=== PATIENT | male | born 1950 | race African-American/Black ===

== ENCOUNTER 2018-01-20 10:46 | Observation (INO) | payer OTHER, MEDICAID ==
[~2018-01-20] VITALS: Ht 175.3 cm; Wt 72.6 kg
[~2018-01-20 10:46] MED LIST: ASPI-1159 PO; BACL-141 PO; CHOL20004 PO; FOLI-43 PO; GABA-290 PO; HYDR12.54 PO; MONT10TA21 PO; NAPR-681 PO; OCD MT; PULM50 IH; SENN-169 PO; TRAZADONE PO
[2018-01-20] MEDS ORDERED: SODIUM CHLORIDE 0.9% 1,000 ML IV ONE (11:05)
[2018-01-20] MEDS ORDERED: ONDANSETRON HCL 4MG/2ML VIAL IV STA (11:05)
[2018-01-20] MEDS ORDERED: KETOROLAC 30MG/ML VIAL IV STA (11:05)
[2018-01-20] MEDS ORDERED: MORPHINE SULFATE 4 MG/ML CPJ (NOT FOR IM USE) IV STA (11:05)
[2018-01-20] MEDS ORDERED: LORAZEPAM 2MG/ML CPJ IV ONE (11:15)
[2018-01-20 11:35] LABS: BASOPHILS % 0.4 % (0.0-2.0); EOSINOPHILS % 0.2 % (0.0-5.0); HEMATOCRIT. 39.8 % (42.0-52.0); HEMOGLOBIN. 13.3 g/dL (14.0-18.0); LYMPHOCYTES % 15.4 % (20.0-50.0); MEAN CORPUSCULAR HEMOGLOBIN 28.7 pg (28.0-32.0); MEAN CORPUSCULAR VOLUME 85.8 fL (80.0-94.0); MEAN PLATELET VOLUME 7.5 fl (7.4-10.4); MONOCYTES % 5.9 % (2.0-8.0); NEUTROPHILS % 78.1 % (40.0-76.0); PLATELET 166 x1000/uL (130-400); RED BLOOD CELL COUNT 4.64 mill/uL (4.7-6.1); RED CELL DISTRIBUTION WIDTH 15.6 % (11.6-14.6)
[2018-01-20 11:42] LABS: INR 1.1
[2018-01-20 11:44] LABS: AMMONIA 27 uMol/L (<32)
[2018-01-20 11:51] LABS: CHLORIDE 102 mEq/L (98-107)
[2018-01-20 11:56] LABS: ETHANOL BLOOD 50 mg/dL
[2018-01-20 12:00] LABS: CREATINE KINASE 170 IU/L (39-308)
[2018-01-20 12:10] LABS: CARBAMAZEPINE < 0.5 ug/mL (4-12); PHENOBARBITAL < 2.1 ug/mL (15.0-40.0); VALPROIC ACID < 3.0 ug/mL (50-100)
[2018-01-20 12:52] LABS: CLARITY URINE CLEAR (CLEAR); COLOR URINE YELLOW (YELLOW); KETONES URINE TRACE (NEGATIVE); LEUKOCYTE ESTERASE URINE NEGATIVE (NEGATIVE); NITRITE URINE NEGATIVE (NEGATIVE); OCCULT BLOOD URINE TRACE (NEGATIVE); PROTEIN URINE NEGATIVE (NEGATIVE); SPECIFIC GRAVITY URINE 1.033 (1.005-1.030)
[2018-01-20] MEDS ORDERED: MORPHINE SULFATE 10 MG/ML CPJ IM ONE (13:15)
[2018-01-20 13:36] LABS: *BARBITURATES SCREEN URINE NEGATIVE (NEGATIVE); OPIATES URINE SCREEN PRESUMTIVE POSITIVE (NEGATIVE); PHENCYCLIDINE URINE SCREEN NEGATIVE (NEGATIVE)
[2018-01-20 13:37] LABS: *AMPHETAMINES SCREEN URINE NEGATIVE (NEGATIVE); *BENZODIAZEPINES SCREEN URINE PRESUMTIVE POSITIVE (NEGATIVE); *COCAINE SCREEN URINE NEGATIVE (NEGATIVE); CANNABINOID URINE SCREEN NEGATIVE (NEGATIVE); METHADONE URINE SCREEN NEGATIVE (NEGATIVE)
[2018-01-20] MEDS ORDERED: FOLIC ACID 1 MG, THIAMINE HCL 100 MG, MVI, ADULT NO.1 10 ML in DEXTROSE 5% WATER 1,000 ML IV ONE ×4 (14:45)
[2018-01-20 17:00] VITALS: BP 171/102
[2018-01-20] MEDS ORDERED: ACETAMINOPHEN 325MG TABLET PO PRN (17:00)
[2018-01-20] MEDS ORDERED: HYDROCODONE/ACETAMINOPHEN 5/325MG TABLET PO PRN (17:00)
[2018-01-20] MEDS ORDERED: ONDANSETRON HCL 4MG/2ML VIAL IV PRN (17:00)
[2018-01-20] MEDS ORDERED: NA PHOS,M-B/NA PHOS,DI-BA ENEMA 118ML PR PRN (17:00)
[2018-01-20] MEDS ORDERED: ACETAMINOPHEN 650MG SUPP PR PRN (17:00)
[2018-01-20] MEDS ORDERED: DIPHENHYDRAMINE 50MG/ML VIAL IV PRN (17:00)
[2018-01-20] MEDS ORDERED: IPRATROPIUM/ALBUTEROL 0.5-3(2.5)MG/3ML NEB INH PRN (17:00)
[2018-01-20] MEDS ORDERED: MAGNESIUM/ALUMINUM HYDROXIDE/SIMETHICONE 30ML UDC PO PRN (17:00)
[2018-01-20] MEDS ORDERED: HYDR-4009 PO (17:05)
[2018-01-20] MEDS: AMLODIPINE 5MG TABLET PO SCH (17:59)
[2018-01-20] MEDS: CLONIDINE 0.1MG TABLET PO PRN (17:59)
[2018-01-20] MEDS: HYDROCODONE/ACETAMINOPHEN 10/325MG TABLET PO PRN ×2 (18:00→23:59)
[2018-01-20] MEDS: LORAZEPAM 2MG/ML CPJ IV PRN (18:00)
[2018-01-20 18:36] VITALS: BP 177/101
[2018-01-20 20:00] VITALS: BP 148/97
[2018-01-20] MEDS: GABAPENTIN 300MG CAPSULE PO SCH (21:33)
[2018-01-20] MEDS: BACLOFEN 10MG TABLET PO SCH (21:33)
[2018-01-20] MEDS: CHLORDIAZEPOXIDE 25MG CAPSULE PO SCH (21:33)
[2018-01-20] MEDS: SODIUM CHLORIDE 0.45% 1,000 ML IV SCH (21:34)
[2018-01-20] MEDS ORDERED: GABAPENTIN 300MG CAPSULE PO SCH (22:00)
[2018-01-21] VITALS: BP 148/93
[2018-01-21 04:00] VITALS: BP 147/92
[2018-01-21] MEDS: BACLOFEN 10MG TABLET PO SCH ×3 (05:05→21:07)
[2018-01-21] MEDS: GABAPENTIN 300MG CAPSULE PO SCH ×3 (05:05→21:07)
[2018-01-21] MEDS: CHLORDIAZEPOXIDE 25MG CAPSULE PO SCH (05:05)
[2018-01-21] MEDS: HYDROCODONE/ACETAMINOPHEN 10/325MG TABLET PO PRN ×3 (06:33→21:08)
[2018-01-21 06:35] LABS: BASOPHILS % 0.4 % (0.0-2.0); EOSINOPHILS % 3.3 % (0.0-5.0); HEMATOCRIT. 35.8 % (42.0-52.0); HEMOGLOBIN. 11.9 g/dL (14.0-18.0); LYMPHOCYTES % 32.1 % (20.0-50.0); MEAN CORPUSCULAR HEMOGLOBIN 28.8 pg (28.0-32.0); MEAN CORPUSCULAR VOLUME 86.3 fL (80.0-94.0); MEAN PLATELET VOLUME 7.7 fl (7.4-10.4); MONOCYTES % 11.4 % (2.0-8.0); NEUTROPHILS % 52.8 % (40.0-76.0); PLATELET 133 x1000/uL (130-400); RED BLOOD CELL COUNT 4.15 mill/uL (4.7-6.1); RED CELL DISTRIBUTION WIDTH 15.5 % (11.6-14.6)
[2018-01-21 06:54] LABS: CHLORIDE 103 mEq/L (98-107)
[2018-01-21 07:04] LABS: LDL CHOLESTEROL 98 mg/dL (5-100)
[2018-01-21 07:06] LABS: HDL CHOLESTEROL 90 mg/dL (40-59)
[2018-01-21 08:00] VITALS: BP 156/97
[2018-01-21] MEDS: LORAZEPAM 2MG/ML CPJ IV PRN ×2 (08:36→22:40)
[2018-01-21] MEDS: ASPIRIN 81MG EC TABLET PO SCH (08:37)
[2018-01-21] MEDS: FOLIC ACID 1MG TABLET PO SCH (08:37)
[2018-01-21] MEDS: MULTIVITAMINS,THER W-MINERALS TABLET PO SCH (08:37)
[2018-01-21] MEDS: AMLODIPINE 5MG TABLET PO SCH (08:37)
[2018-01-21] MEDS: THIAMINE HCL 100MG TABLET PO SCH (08:37)
[2018-01-21] MEDS: SODIUM CHLORIDE 0.45% 1,000 ML IV SCH (08:38)
[2018-01-21] MEDS ORDERED: POTASSIUM CHLORIDE 20MEQ TABLET SR PO SCH (08:45)
[2018-01-21] MEDS ORDERED: CHLORDIAZEPOXIDE 25MG CAPSULE PO PRN (11:00)
[2018-01-21 12:00] VITALS: BP 153/89
[2018-01-21] MEDS: ENOXAPARIN 40MG/0.4ML SYR SUBCUT SCH (13:27)
[2018-01-21 16:00] VITALS: BP 128/93
[2018-01-21 20:00] VITALS: BP 144/95
[2018-01-21] MEDS: CLONIDINE 0.1MG TABLET PO PRN (23:31)
[2018-01-22] VITALS (8 sets, daily range): BP systolic 132–168; BP diastolic 86–105
[2018-01-22] MEDS: HYDROCODONE/ACETAMINOPHEN 10/325MG TABLET PO PRN (03:13)
[2018-01-22] MEDS: BACLOFEN 10MG TABLET PO SCH ×2 (05:04→13:12)
[2018-01-22] MEDS: GABAPENTIN 300MG CAPSULE PO SCH ×2 (05:04→13:11)
[2018-01-22 07:15] LABS: HEMATOCRIT 37.4 % (42.0-52.0); HEMOGLOBIN 12.5 g/dL (14.0-18.0); PLATELET 132 x1000/uL (130-400); RED CELL DISTRIBUTION WIDTH 15.3 % (11.6-14.6)
[2018-01-22 07:24] LABS: CHLORIDE 104 mEq/L (98-107)
[2018-01-22] MEDS: FOLIC ACID 1MG TABLET PO SCH (09:30)
[2018-01-22] MEDS: MULTIVITAMINS,THER W-MINERALS TABLET PO SCH (09:30)
[2018-01-22] MEDS: THIAMINE HCL 100MG TABLET PO SCH (09:31)
[2018-01-22] MEDS: ASPIRIN 81MG EC TABLET PO SCH (09:31)
[2018-01-22] MEDS: AMLODIPINE 5MG TABLET PO SCH (09:31)
[2018-01-22] MEDS: ENOXAPARIN 40MG/0.4ML SYR SUBCUT SCH (09:32)
[2018-01-22] MEDS ORDERED: HYDROCHLOROTHIAZIDE 25MG TABLET PO SCH (12:00)
[2018-01-22] MEDS ORDERED: LACTULOSE 20G/30ML UDC PO NR (13:30)
== END 2018-01-22 20:16 ==
LOC: ER 11:02 → INTOOBSV 14:46 → 5WST 14:46 → EDBEDREQ 14:51 → ENRESERV 15:26 → SUPCPDRO 16:51
PROVIDERS: ADMIT Internal Medicine; ATTEND Internal Medicine
DX: F10.239 Alcohol dependence with withdrawal, unspecified (principal); G61.0 Guillain-Barre syndrome; E87.6 Hypokalemia; E86.0 Dehydration; I10 Essential (primary) hypertension; D64.9 Anemia, unspecified; E78.5 Hyperlipidemia, unspecified; F11.20 Opioid dependence, uncomplicated; G89.4 Chronic pain syndrome; R26.9 Unspecified abnormalities of gait and mobility; Y90.2 Blood alcohol level of 40-59 mg/100 ml; Z91.19 Patient's noncompliance with other medical treatment and regimen
CPT/HCPCS: 36415; 71045; 80048; 80053; 80061; 80156; 80165; 80184; 80185; 80305; 80307; 80329; 81003; 82140; 82550; 83690; 83880; 84443; 84484; 85025; 85027; 85610; 93005; 93306; 93970; 96361; 96365; 96366; 96372; 96375; 96376; 97162; 97530; 99285; G0378; G0482; J1650; J1885; J2060; J2270; J2405; J3411; J3490; J7030; J7070

== ENCOUNTER 2018-01-25 13:06 | Observation (INO) | payer OTHER, MEDICAID ==
[~2018-01-25] VITALS: Ht 152.4 cm; Wt 4.5 kg
[~2018-01-25 13:06] MED LIST changes: +HYDR-4009 PO; -NAPR-681 PO
[2018-01-25 16:25] LABS: INR 1.1
[2018-01-25 16:37] LABS: CHLORIDE 104 mEq/L (98-107)
[2018-01-25 16:54] LABS: CLARITY URINE CLEAR (CLEAR); COLOR URINE YELLOW (YELLOW); KETONES URINE NEGATIVE (NEGATIVE); LEUKOCYTE ESTERASE URINE NEGATIVE (NEGATIVE); NITRITE URINE NEGATIVE (NEGATIVE); OCCULT BLOOD URINE NEGATIVE (NEGATIVE); PROTEIN URINE NEGATIVE (NEGATIVE); SPECIFIC GRAVITY URINE 1.007 (1.005-1.030); UROBILINOGEN URINE 0.2 E.U./dL (0.2-1.0)
[2018-01-25 17:08] LABS: *BARBITURATES SCREEN URINE NEGATIVE (NEGATIVE); *BENZODIAZEPINES SCREEN URINE PRESUMTIVE POSITIVE (NEGATIVE); METHADONE URINE SCREEN NEGATIVE (NEGATIVE); OPIATES URINE SCREEN NEGATIVE (NEGATIVE)
[2018-01-25 17:09] LABS: CANNABINOID URINE SCREEN NEGATIVE (NEGATIVE); PHENCYCLIDINE URINE SCREEN NEGATIVE (NEGATIVE)
[2018-01-25 17:11] LABS: *AMPHETAMINES SCREEN URINE NEGATIVE (NEGATIVE); *COCAINE SCREEN URINE NEGATIVE (NEGATIVE)
[2018-01-25 20:54] LABS: BASOPHILS % 0.2 % (0.0-2.0); EOSINOPHILS % 1.3 % (0.0-5.0); HEMATOCRIT. 36.3 % (42.0-52.0); HEMOGLOBIN. 12.1 g/dL (14.0-18.0); MEAN CORPUSCULAR HEMOGLOBIN 29.2 pg (28.0-32.0); MEAN CORPUSCULAR VOLUME 88.1 fL (80.0-94.0); MEAN PLATELET VOLUME 7.6 fl (7.4-10.4); MONOCYTES % 13.4 % (2.0-8.0); NEUTROPHILS % 51.1 % (40.0-76.0); PLATELET 150 x1000/uL (130-400); RED BLOOD CELL COUNT 4.13 mill/uL (4.7-6.1); RED CELL DISTRIBUTION WIDTH 15.5 % (11.6-14.6)
[2018-01-25] MEDS ORDERED: HYDROCODONE/ACETAMINOPHEN 5/325MG TABLET PO ONE (21:00)
[2018-01-26] VITALS (9 sets, daily range): BP systolic 150–178; BP diastolic 88–108
[2018-01-26] MEDS ORDERED: HYDROCODONE/ACETAMINOPHEN 10/325MG TABLET PO PRN (03:30)
[2018-01-26] MEDS ORDERED: ACETAMINOPHEN 650MG/20.3ML UDC PO PRN (03:45)
[2018-01-26] MEDS: SODIUM CHLORIDE 0.9% INJ 3ML FLUSH IVF SCH ×3 (06:00→22:00)
[2018-01-26] MEDS: GABAPENTIN 300MG CAPSULE PO SCH ×3 (06:58→21:15)
[2018-01-26 07:13] LABS: BASOPHILS % 0.4 % (0.0-2.0); EOSINOPHILS % 0.8 % (0.0-5.0); HEMATOCRIT. 36.2 % (42.0-52.0); HEMOGLOBIN. 12.1 g/dL (14.0-18.0); LYMPHOCYTES % 23.5 % (20.0-50.0); MEAN CORPUSCULAR HEMOGLOBIN 29.1 pg (28.0-32.0); MEAN CORPUSCULAR VOLUME 86.8 fL (80.0-94.0); MONOCYTES % 11.3 % (2.0-8.0); PLATELET 149 x1000/uL (130-400); RED BLOOD CELL COUNT 4.17 mill/uL (4.7-6.1)
[2018-01-26 07:41] LABS: CHLORIDE 101 mEq/L (98-107)
[2018-01-26] MEDS ORDERED: BUDESONIDE 0.5MG/2ML NEB HHN SCH (09:00)
[2018-01-26] MEDS: FOLIC ACID 1MG TABLET PO SCH (09:12)
[2018-01-26] MEDS: MONTELUKAST SODIUM 10MG TABLET PO SCH (09:13)
[2018-01-26] MEDS: FAMOTIDINE 20MG TABLET PO SCH ×2 (09:13→21:13)
[2018-01-26] MEDS: CALCIUM CARBONATE/VITAMIN D3 500MG TABLET PO SCH (09:13)
[2018-01-26] MEDS: ASPIRIN 81MG TABLET PO SCH (09:13)
[2018-01-26] MEDS: MULTIVITAMINS,THER W-MINERALS TABLET PO SCH (09:13)
[2018-01-26] MEDS: ENOXAPARIN 40MG/0.4ML SYR SUBCUT SCH (09:14)
[2018-01-26] MEDS: THIAMINE HCL 100MG TABLET PO SCH (09:14)
[2018-01-26] MEDS ORDERED: SENNOSIDES 8.6MG TABLET PO SCH (21:00)
[2018-01-26] MEDS: CLONIDINE 0.1MG TABLET PO PRN (21:13)
[2018-01-27] VITALS: BP 161/101
[2018-01-27 04:00] VITALS: BP 152/95
[2018-01-27] MEDS ORDERED: HYDRALAZINE HCL 50MG TABLET PO SCH (06:00)
[2018-01-27] MEDS: SODIUM CHLORIDE 0.9% INJ 3ML FLUSH IVF SCH (06:10)
[2018-01-27] MEDS: GABAPENTIN 300MG CAPSULE PO SCH (06:10)
[2018-01-27 08:00] VITALS: BP 151/95
[2018-01-27] MEDS: FOLIC ACID 1MG TABLET PO SCH (09:55)
[2018-01-27] MEDS: MULTIVITAMINS,THER W-MINERALS TABLET PO SCH (09:55)
[2018-01-27] MEDS: ENOXAPARIN 40MG/0.4ML SYR SUBCUT SCH (09:55)
[2018-01-27] MEDS: CALCIUM CARBONATE/VITAMIN D3 500MG TABLET PO SCH (09:55)
[2018-01-27] MEDS: CLONIDINE 0.1MG TABLET PO PRN (09:55)
[2018-01-27] MEDS: THIAMINE HCL 100MG TABLET PO SCH (09:55)
[2018-01-27] MEDS: FAMOTIDINE 20MG TABLET PO SCH (09:55)
[2018-01-27] MEDS: ASPIRIN 81MG TABLET PO SCH (09:55)
[2018-01-27] MEDS: MONTELUKAST SODIUM 10MG TABLET PO SCH (09:55)
[2018-01-27 12:00] VITALS: BP 133/83
[2018-01-27 12:52] VITALS: BP 133/83
== END 2018-01-27 14:15 | disposition home or self-care (01) ==
LOC: ER 13:06 → INTOOBSV 22:40 → 5WST 22:40 → ENRESERV 01-26 00:02 → 5WST 01-26 02:14
PROVIDERS: ADMIT Internal Medicine; ATTEND Internal Medicine
DX: G62.9 Polyneuropathy, unspecified (principal); F10.10 Alcohol abuse, uncomplicated; G61.0 Guillain-Barre syndrome; I10 Essential (primary) hypertension; F32.9 Major depressive disorder, single episode, unspecified; Z99.3 Dependence on wheelchair; W18.30XA Fall on same level, unspecified, initial encounter; Y92.89 Other specified places as the place of occurrence of the external cause; Y93.89 Activity, other specified; Y99.8 Other external cause status
CPT/HCPCS: 36415; 70450; 71045; 80048; 80053; 80305; 81003; 83036; 83880; 84484; 85025; 85610; 87040; 87086; 93005; 96372; 99285; G0378; J1650

== ENCOUNTER 2018-04-05 22:33 | Emergency (ER) | payer OTHER, MEDICAID ==
[~2018-04-05] VITALS: Ht 175.3 cm; Wt 66.0 kg
[2018-04-06] MEDS ORDERED: OXYCODONE HCL 5MG TABLET PO ONE (01:15)
[2018-04-06] MEDS ORDERED: KETOROLAC 15MG/ML VIAL IM ONE (01:15)
[2018-04-06] MEDS ORDERED: PREDNISONE 20MG TABLET PO ONE (01:15)
[2018-04-06 01:51] VITALS: BP 154/78
== END 2018-04-06 01:51 | disposition home or self-care (01) ==
LOC: ER 22:33
DX: G89.29 Other chronic pain (principal); M54.5 Low back pain; M25.552 Pain in left hip; M25.562 Pain in left knee; M79.1 Myalgia; M19.90 Unspecified osteoarthritis, unspecified site; K21.9 Gastro-esophageal reflux disease without esophagitis; I10 Essential (primary) hypertension; I51.9 Heart disease, unspecified; Z79.899 Other long term (current) drug therapy; W17.89XA Other fall from one level to another, initial encounter; Y93.89 Activity, other specified; Y92.89 Other specified places as the place of occurrence of the external cause; Y99.8 Other external cause status
CPT/HCPCS: 73502; 73562; 96372; 99284; J1885; J7512

== ENCOUNTER 2018-07-21 06:59 | Emergency (ER) | payer OTHER, MEDICAID ==
[~2018-07-21] VITALS: Ht 175.3 cm; Wt 72.0 kg
[~2018-07-21 06:59] MED LIST changes: -SENN-169 PO; +SENN-170 PO
[2018-07-21] MEDS ORDERED: FLUORESCEIN SODIUM 1MG/STRIP OP ONE (07:30)
[2018-07-21] MEDS ORDERED: TETRACAINE 0.5% OPHTH DROPS 4ML LEFTEYE ONE (09:30)
[2018-07-21] MEDS ORDERED: OXYCODONE HCL/ACETAMINOPHEN 5/325MG TABLET PO ONE (10:00)
[2018-07-21 11:25] VITALS: BP 178/92
== END 2018-07-21 11:35 | disposition home or self-care (01) ==
LOC: ER 06:59
DX: H11.32 Conjunctival hemorrhage, left eye (principal); G61.0 Guillain-Barre syndrome; I11.9 Hypertensive heart disease without heart failure; K21.9 Gastro-esophageal reflux disease without esophagitis; Z98.49 Cataract extraction status, unspecified eye; Z79.82 Long term (current) use of aspirin
CPT/HCPCS: 99283

== ENCOUNTER 2018-11-12 15:36 | Inpatient (IN) | payer MEDICAID, OTHER ==
[~2018-11-12] VITALS: Ht 175.3 cm; Wt 67.1 kg
[2018-11-12] MEDS ORDERED: IPRATROPIUM BROMIDE (0.02%) 0.5MG/2.5ML NEB HHN STA (16:10)
[2018-11-12] MEDS ORDERED: SODIUM CHLORIDE 0.9% 1,000 ML IV ONE (16:10)
[2018-11-12] MEDS ORDERED: ALBUTEROL (0.083%) 2.5MG/3ML NEB HHN STA (16:10)
[2018-11-12] MEDS ORDERED: METHYLPREDNISOLONE SOD SUCC 125 MG/2 ML VIAL IV STA (16:10)
[2018-11-12] MEDS ORDERED: DIAZEPAM 5 MG TABLET PO ONE (16:15)
[2018-11-12 16:38] LABS: BASOPHILS % 0.4 % (0.0-2.0); EOSINOPHILS % 0.1 % (0.0-5.0); HEMATOCRIT. 36.3 % (42.0-52.0); LYMPHOCYTES % 10.6 % (20.0-50.0); MEAN CORPUSCULAR HEMOGLOBIN 30.1 pg (28.0-32.0); MEAN CORPUSCULAR VOLUME 91.1 fL (80.0-94.0); MEAN PLATELET VOLUME 7.4 fl (7.4-10.4); NEUTROPHILS % 82.9 % (40.0-76.0); PLATELET 179 x1000/uL (130-400); RED BLOOD CELL COUNT 3.98 mill/uL (4.7-6.1); RED CELL DISTRIBUTION WIDTH 14.9 % (11.6-14.6)
[2018-11-12 16:46] LABS: PROTHROMBIN TIME 10.7 sec (9.6-11.0)
[2018-11-12 16:47] LABS: CHLORIDE 102 mEq/L (98-107)
[2018-11-12] MEDS ORDERED: MAGNESIUM 1 G PREMIX 100 ML IV ONE (17:00)
[2018-11-12 17:45] LABS: BG BASE EXCESS 4.5 mmol/L (-2.0-2.0); BG CARBOXYHEMOGLOBIN 0.3 % (0.5-1.5); BG DEOXYHEMOGLOBIN 3.1 % (0.0-5.0); BG FRACTION INSPIRED OXYGEN 21; BG HCO3 ACT 26.5 mmol/L (22.0-26.0); BG METHEMOGLOBIN 0.4 % (0.0-1.5); BG OXYGEN SATURATION 96.9 % (92.0-98.5); BG OXYHEMOGLOBIN 96.2 % (94.0-97.0); BG PCO2 31.3 mmHg (35.0-45.0); BG PH 7.546 (7.350-7.450); BG PO2 98.3 mmHg (75.0-100.0); BG SAMPLE SITE RIGHT BRACHIAL; BG TOTAL HEMOGLOBIN 12.5 g/dL (12.0-18.0); BG VENT MODE ROOM AIR
[2018-11-12] MEDS ORDERED: GABAPENTIN 300MG CAPSULE PO ONE (17:45)
[2018-11-12 20:03] LABS: CLARITY URINE CLOUDY (CLEAR); COLOR URINE YELLOW (YELLOW); KETONES URINE 1+ (NEGATIVE); LEUKOCYTE ESTERASE URINE TRACE (NEGATIVE); NITRITE URINE NEGATIVE (NEGATIVE); OCCULT BLOOD URINE NEGATIVE (NEGATIVE); PH URINE 7.5 (4.5-8.0); PROTEIN URINE NEGATIVE (NEGATIVE); SPECIFIC GRAVITY URINE 1.023 (1.005-1.030)
[2018-11-12] MEDS ORDERED: HYDRALAZINE 20MG/ML VIAL IV PRN (20:15)
[2018-11-13] VITALS (7 sets, daily range): BP systolic 144–189; BP diastolic 81–102
[2018-11-13] MEDS ORDERED: TRAZ-212 PO ×2 (01:13→02:11)
[2018-11-13] MEDS ORDERED: NAPR500T7 PO (01:17)
[2018-11-13] MEDS ORDERED: DULO30CA51 PO (01:18)
[2018-11-13] MEDS: HYDROCODONE/ACETAMINOPHEN 5/325MG TABLET PO PRN ×5 (03:01→22:40)
[2018-11-13] MEDS: GABAPENTIN 300MG CAPSULE PO SCH ×3 (06:00→21:15)
[2018-11-13] MEDS: BACLOFEN 10MG TABLET PO SCH ×3 (08:38→17:59)
[2018-11-13] MEDS: DULOXETINE HCL 30MG DR CAPSULE PO SCH ×2 (08:38→18:00)
[2018-11-13] MEDS: CHOLECALCIFEROL (D3) 1000 UNIT TABLET PO SCH (08:38)
[2018-11-13] MEDS: FOLIC ACID 1MG TABLET PO SCH (08:38)
[2018-11-13] MEDS: ASPIRIN 81MG TABLET PO SCH (08:38)
[2018-11-13] MEDS: CALCIUM CARBONATE/VITAMIN D3 500MG TABLET PO SCH ×2 (08:38→17:59)
[2018-11-13] MEDS: NAPROXEN 250MG TABLET PO SCH ×2 (08:39→18:00)
[2018-11-13] MEDS: HYDROCHLOROTHIAZIDE 12.5MG CAPSULE PO SCH (08:39)
[2018-11-13 10:10] LABS: BASOPHILS % 0.1 % (0.0-2.0); HEMATOCRIT. 38.9 % (42.0-52.0); HEMOGLOBIN. 12.9 g/dL (14.0-18.0); LYMPHOCYTES % 15.9 % (20.0-50.0); MEAN CORPUSCULAR HEMOGLOBIN 29.9 pg (28.0-32.0); MEAN PLATELET VOLUME 7.9 fl (7.4-10.4); MONOCYTES % 10.2 % (2.0-8.0); NEUTROPHILS % 73.8 % (40.0-76.0); PLATELET 164 x1000/uL (130-400); RED BLOOD CELL COUNT 4.32 mill/uL (4.7-6.1); RED CELL DISTRIBUTION WIDTH 14.8 % (11.6-14.6)
[2018-11-13] MEDS: IPRATROPIUM/ALBUTEROL 0.5-3(2.5)MG/3ML NEB HHN SCH ×4 (10:15→20:24)
[2018-11-13] MEDS: BUDESONIDE 0.5MG/2ML NEB INH SCH ×2 (10:15→20:25)
[2018-11-13 10:27] LABS: CHLORIDE 99 mEq/L (98-107)
[2018-11-13 10:38] LABS: LDL CHOLESTEROL 104 mg/dL (5-100)
[2018-11-13 10:39] LABS: T4 FREE 0.72 ng/dL (0.76-1.46)
[2018-11-13 11:09] LABS: HDL CHOLESTEROL 171 mg/dL (40-59)
[2018-11-13] MEDS: METHYLPREDNISOLONE SOD SUCC 40 MG/ML VIAL IV SCH ×2 (13:09→21:15)
[2018-11-13] MEDS: MONTELUKAST SODIUM 10MG TABLET PO SCH (18:00)
[2018-11-13] MEDS: SENNOSIDES 8.6MG TABLET PO SCH (21:15)
[2018-11-13 21:35] LABS: VITAMIN B12 SERUM 256 pg/mL (211-911)
[2018-11-14] VITALS: BP 169/96
[2018-11-14] MEDS: IPRATROPIUM/ALBUTEROL 0.5-3(2.5)MG/3ML NEB HHN SCH ×6 (00:19→21:10)
[2018-11-14 04:00] VITALS: BP 167/92
[2018-11-14] MEDS: METHYLPREDNISOLONE SOD SUCC 40 MG/ML VIAL IV SCH ×2 (06:07→13:33)
[2018-11-14] MEDS: GABAPENTIN 300MG CAPSULE PO SCH ×2 (06:08→13:32)
[2018-11-14 08:00] VITALS: BP 155/95
[2018-11-14] MEDS: CHOLECALCIFEROL (D3) 1000 UNIT TABLET PO SCH (09:18)
[2018-11-14] MEDS: CALCIUM CARBONATE/VITAMIN D3 500MG TABLET PO SCH ×2 (09:18→16:48)
[2018-11-14] MEDS: NAPROXEN 250MG TABLET PO SCH ×2 (09:18→16:48)
[2018-11-14] MEDS: HYDROCHLOROTHIAZIDE 12.5MG CAPSULE PO SCH (09:19)
[2018-11-14] MEDS: DULOXETINE HCL 30MG DR CAPSULE PO SCH ×2 (09:19→16:48)
[2018-11-14] MEDS: BACLOFEN 10MG TABLET PO SCH ×3 (09:19→16:48)
[2018-11-14] MEDS: FOLIC ACID 1MG TABLET PO SCH (09:19)
[2018-11-14] MEDS: ASPIRIN 81MG TABLET PO SCH (09:20)
[2018-11-14] MEDS: ENOXAPARIN 40MG/0.4ML SYR SUBCUT SCH (09:20)
[2018-11-14] MEDS: HYDROCODONE/ACETAMINOPHEN 5/325MG TABLET PO PRN ×2 (09:21→21:25)
[2018-11-14] MEDS: BUDESONIDE 0.5MG/2ML NEB INH SCH ×2 (09:35→21:10)
[2018-11-14 12:00] VITALS: BP 150/80
[2018-11-14] MEDS ORDERED: DOCUSATE SODIUM 100MG CAPSULE PO PRN (13:30)
[2018-11-14] MEDS ORDERED: LORAZEPAM 2MG/ML CPJ IV PRN (13:30)
[2018-11-14] MEDS ORDERED: LORAZEPAM 2MG/ML CPJ IV SCH (13:30)
[2018-11-14] MEDS: CHLORDIAZEPOXIDE 25MG CAPSULE PO SCH ×2 (13:38→21:26)
[2018-11-14 16:00] VITALS: BP 153/83
[2018-11-14] MEDS ORDERED: METOPROLOL TARTRATE 5MG/5ML VIAL IV NR (16:30)
[2018-11-14] MEDS: SODIUM CHLORIDE 0.45% 1,000 ML IV SCH ×2 (16:47→23:30)
[2018-11-14] MEDS: PANTOPRAZOLE SODIUM 40 MG/VIAL IV SCH (16:47)
[2018-11-14] MEDS: MONTELUKAST SODIUM 10MG TABLET PO SCH (16:48)
[2018-11-14] MEDS: CHOLESTYRAMINE/SUCROSE 4G POWDER PACKET PO SCH (17:43)
[2018-11-14 20:00] VITALS: BP 136/88
[2018-11-14] MEDS: SENNOSIDES 8.6MG TABLET PO SCH (21:25)
[2018-11-14] MEDS: TIZANIDINE HCL 2MG TABLET PO SCH (21:26)
[2018-11-14] MEDS: METOPROLOL TARTRATE 25MG TABLET PO SCH (21:26)
[2018-11-15] VITALS: BP 126/69
[2018-11-15] MEDS: GABAPENTIN 300MG CAPSULE PO SCH ×3 (00:07→13:44)
[2018-11-15] MEDS: METHYLPREDNISOLONE SOD SUCC 40 MG/ML VIAL IV SCH ×2 (00:30→13:45)
[2018-11-15] MEDS: IPRATROPIUM/ALBUTEROL 0.5-3(2.5)MG/3ML NEB HHN SCH ×4 (00:57→11:54)
[2018-11-15 04:00] VITALS: BP 124/77
[2018-11-15] MEDS: CHLORDIAZEPOXIDE 25MG CAPSULE PO SCH ×2 (06:32→13:44)
[2018-11-15] MEDS: TIZANIDINE HCL 2MG TABLET PO SCH ×2 (06:32→13:44)
[2018-11-15] MEDS: CHOLESTYRAMINE/SUCROSE 4G POWDER PACKET PO SCH ×2 (06:33→17:17)
[2018-11-15 06:39] LABS: HEMATOCRIT 34.5 % (42.0-52.0); HEMOGLOBIN 11.6 g/dL (14.0-18.0); MEAN CORPUSCULAR HEMOGLOBIN 30.5 pg (28.0-32.0); MEAN CORPUSCULAR VOLUME 90.7 fL (80.0-94.0); PLATELET 129 x1000/uL (130-400); RED CELL DISTRIBUTION WIDTH 14.1 % (11.6-14.6)
[2018-11-15 06:57] LABS: CHLORIDE 99 mEq/L (98-107)
[2018-11-15 08:00] VITALS: BP 110/63
[2018-11-15] MEDS: BUDESONIDE 0.5MG/2ML NEB INH SCH (08:02)
[2018-11-15] MEDS ORDERED: MULTIVITAMINS,THER W-MINERALS TABLET PO SCH (09:00)
[2018-11-15] MEDS: CHOLECALCIFEROL (D3) 1000 UNIT TABLET PO SCH (09:11)
[2018-11-15] MEDS: PANTOPRAZOLE SODIUM 40 MG/VIAL IV SCH (09:11)
[2018-11-15] MEDS: NAPROXEN 250MG TABLET PO SCH ×2 (09:12→17:16)
[2018-11-15] MEDS: HYDROCHLOROTHIAZIDE 12.5MG CAPSULE PO SCH (09:12)
[2018-11-15] MEDS: METOPROLOL TARTRATE 25MG TABLET PO SCH (09:12)
[2018-11-15] MEDS: DULOXETINE HCL 30MG DR CAPSULE PO SCH ×2 (09:12→17:16)
[2018-11-15] MEDS: ENOXAPARIN 40MG/0.4ML SYR SUBCUT SCH (09:13)
[2018-11-15] MEDS: FOLIC ACID 1MG TABLET PO SCH (09:13)
[2018-11-15] MEDS: CALCIUM CARBONATE/VITAMIN D3 500MG TABLET PO SCH ×2 (09:13→17:16)
[2018-11-15] MEDS: BACLOFEN 10MG TABLET PO SCH ×3 (09:13→17:16)
[2018-11-15] MEDS: ASPIRIN 81MG TABLET PO SCH (09:13)
[2018-11-15] MEDS: SODIUM CHLORIDE 0.45% 1,000 ML IV SCH (09:14)
[2018-11-15 12:00] VITALS: BP 128/74
[2018-11-15 16:00] VITALS: BP 120/75
[2018-11-15 16:34] VITALS: BP 120/75
[2018-11-15] MEDS: MONTELUKAST SODIUM 10MG TABLET PO SCH (17:16)
== END 2018-11-15 17:45 | disposition short-term general hospital (02) | DRG 897 ==
LOC: ER 16:59 → 5WST 17:20 → EDBEDREQ 17:25 → ENRESERV 23:10
PROVIDERS: ADMIT Internal Medicine; ATTEND Internal Medicine
DX: F10.239 Alcohol dependence with withdrawal, unspecified (principal); J45.901 Unspecified asthma with (acute) exacerbation; G61.0 Guillain-Barre syndrome; E72.20 Disorder of urea cycle metabolism, unspecified; G89.4 Chronic pain syndrome; F41.9 Anxiety disorder, unspecified; R00.0 Tachycardia, unspecified; E86.0 Dehydration; E78.5 Hyperlipidemia, unspecified; R26.9 Unspecified abnormalities of gait and mobility; I10 Essential (primary) hypertension; K21.9 Gastro-esophageal reflux disease without esophagitis; R29.6 Repeated falls; Z91.19 Patient's noncompliance with other medical treatment and regimen
CPT/HCPCS: 36415; 36600; 71045; 74018; 80048; 80061; 82140; 82375; 82607; 82805; 83735; 83880; 84439; 84443; 84484; 85027; 93005; 94640; 96365; 96375; 97116; 97162; 99285; C9113; J0360; J1650; J2060; J2920; J2930; J3475; J3490; J7030; J7611; J7620; J7626

== ENCOUNTER 2018-12-20 14:15 | Inpatient (IN) | payer OTHER ==
[~2018-12-20] VITALS: Ht 175.3 cm; Wt 72.6 kg
[~2018-12-20 14:15] MED LIST changes: -ASPI-1159 PO; +ASPI-1393 PO; +DULO30CA51 PO; -HYDR-4009 PO; +NAPR500T7 PO; -TRAZADONE PO
[2018-12-20] MEDS ORDERED: SODIUM CHLORIDE 0.9% 1,000 ML IV ONE (16:15)
[2018-12-20] MEDS ORDERED: LORAZEPAM 2MG/ML CPJ IV ONE (16:15)
[2018-12-20 16:30] LABS: CHLORIDE 101 mEq/L (98-107)
[2018-12-20 16:34] LABS: ETHANOL BLOOD < 10 mg/dL
[2018-12-20 16:37] LABS: BASOPHILS % 0.3 % (0.0-2.0); EOSINOPHILS % 0.1 % (0.0-5.0); HEMOGLOBIN. 12.7 g/dL (14.0-18.0); LYMPHOCYTES % 7.9 % (20.0-50.0); MEAN CORPUSCULAR HEMOGLOBIN 30.5 pg (28.0-32.0); MEAN CORPUSCULAR VOLUME 93.7 fL (80.0-94.0); MONOCYTES % 7.4 % (2.0-8.0); NEUTROPHILS % 84.3 % (40.0-76.0); PLATELET 139 x1000/uL (130-400); RED BLOOD CELL COUNT 4.17 mill/uL (4.7-6.1)
[2018-12-20 16:48] LABS: *BARBITURATES SCREEN URINE NEGATIVE (NEGATIVE); *COCAINE SCREEN URINE NEGATIVE (NEGATIVE)
[2018-12-20 16:49] LABS: *AMPHETAMINES SCREEN URINE NEGATIVE (NEGATIVE); *BENZODIAZEPINES SCREEN URINE PRESUMTIVE POSITIVE (NEGATIVE); CANNABINOID URINE SCREEN NEGATIVE (NEGATIVE); METHADONE URINE SCREEN NEGATIVE (NEGATIVE); OPIATES URINE SCREEN NEGATIVE (NEGATIVE); PHENCYCLIDINE URINE SCREEN NEGATIVE (NEGATIVE)
[2018-12-21] VITALS (7 sets, daily range): BP systolic 146–172; BP diastolic 83–105
[2018-12-21] MEDS ORDERED: LORAZEPAM 1MG TABLET PO PRN ×2 (01:45→19:45)
[2018-12-21] MEDS ORDERED: IPRATROPIUM/ALBUTEROL 0.5-3(2.5)MG/3ML NEB HHN PRN (01:45)
[2018-12-21] MEDS ORDERED: CLONIDINE 0.1MG TABLET PO PRN (01:45)
[2018-12-21] MEDS: PANTOPRAZOLE 40MG DR TABLET PO SCH (09:02)
[2018-12-21] MEDS: MULTIVITAMINS,THER W-MINERALS TABLET PO SCH (09:02)
[2018-12-21] MEDS: THIAMINE HCL 100MG TABLET PO SCH (09:02)
[2018-12-21] MEDS: DEXT 5%/0.45% NACL 1000ML 1,000 ML IV SCH ×2 (12:19→21:43)
[2018-12-21 13:29] LABS: BASOPHILS % 0.3 % (0.0-2.0); EOSINOPHILS % 0.9 % (0.0-5.0); HEMATOCRIT. 40.5 % (42.0-52.0); HEMOGLOBIN. 13.6 g/dL (14.0-18.0); MEAN CORPUSCULAR HEMOGLOBIN 30.9 pg (28.0-32.0); MEAN CORPUSCULAR VOLUME 92.2 fL (80.0-94.0); MEAN PLATELET VOLUME 8.2 fl (7.4-10.4); MONOCYTES % 13.3 % (2.0-8.0); NEUTROPHILS % 66.5 % (40.0-76.0); PLATELET 131 x1000/uL (130-400); RED BLOOD CELL COUNT 4.39 mill/uL (4.7-6.1); RED CELL DISTRIBUTION WIDTH 14.6 % (11.6-14.6)
[2018-12-21 13:32] LABS: CHLORIDE 102 mEq/L (98-107)
[2018-12-21] MEDS ORDERED: CHLORDIAZEPOXIDE 25MG CAPSULE PO SCH (14:00)
[2018-12-21] MEDS ORDERED: LACTULOSE 20G/30ML UDC PO SCH (15:15)
[2018-12-21] MEDS ORDERED: MEDICATION NOT ON FORMULARY EA (Gabapentin 600 MG) PO SCH (15:15)
[2018-12-21] MEDS ORDERED: MEDICATION NOT ON FORMULARY EA (Hydrochlorothiazide 1 TAB) PO SCH (15:15)
[2018-12-21] MEDS ORDERED: POTASSIUM CHLORIDE 20MEQ TABLET SR PO SCH (15:15)
[2018-12-21] MEDS ORDERED: BACLOFEN 5 MG PO SCH (17:00)
[2018-12-21] MEDS: AMLODIPINE 5MG TABLET PO SCH (17:48)
[2018-12-21] MEDS: HYDROCHLOROTHIAZIDE 12.5MG CAPSULE PO SCH (17:48)
[2018-12-21] MEDS: DULOXETINE HCL 30MG DR CAPSULE PO SCH (17:49)
[2018-12-21] MEDS: CALCIUM CARBONATE/VITAMIN D3 500MG TABLET PO SCH (17:49)
[2018-12-21] MEDS: BACLOFEN 10MG TABLET PO SCH (17:49)
[2018-12-21] MEDS ORDERED: SENNOSIDES 8.6MG TABLET PO SCH (21:00)
[2018-12-21] MEDS: CHLORDIAZEPOXIDE 25MG CAPSULE PO SCH (21:42)
[2018-12-21] MEDS: GABAPENTIN 300MG CAPSULE PO SCH (21:42)
[2018-12-22] VITALS (7 sets, daily range): BP systolic 118–169; BP diastolic 66–104
[2018-12-22 07:02] LABS: CHLORIDE 105 mEq/L (98-107)
[2018-12-22] MEDS: CHLORDIAZEPOXIDE 25MG CAPSULE PO SCH ×2 (07:10→15:01)
[2018-12-22] MEDS: GABAPENTIN 300MG CAPSULE PO SCH ×2 (07:10→15:01)
[2018-12-22] MEDS: PANTOPRAZOLE 40MG DR TABLET PO SCH (07:11)
[2018-12-22 07:19] LABS: HEMOGLOBIN 14.1 g/dL (14.0-18.0); MEAN CORPUSCULAR HEMOGLOBIN 30.5 pg (28.0-32.0); MEAN CORPUSCULAR VOLUME 92.9 fL (80.0-94.0); PLATELET 127 x1000/uL (130-400); RED BLOOD CELL COUNT 4.63 mill/uL (4.7-6.1); RED CELL DISTRIBUTION WIDTH 14.7 % (11.6-14.6)
[2018-12-22] MEDS: BUDESONIDE 0.5MG/2ML NEB INH SCH ×2 (08:07→20:08)
[2018-12-22] MEDS: HYDROCHLOROTHIAZIDE 12.5MG CAPSULE PO SCH (08:48)
[2018-12-22] MEDS: AMLODIPINE 5MG TABLET PO SCH (08:49)
[2018-12-22] MEDS: BACLOFEN 10MG TABLET PO SCH ×2 (08:50→15:02)
[2018-12-22] MEDS: MULTIVITAMINS,THER W-MINERALS TABLET PO SCH (08:50)
[2018-12-22] MEDS: DULOXETINE HCL 30MG DR CAPSULE PO SCH ×2 (08:51→17:58)
[2018-12-22] MEDS ORDERED: MONTELUKAST SODIUM 10MG TABLET PO SCH (09:00)
[2018-12-22] MEDS ORDERED: MEDICATION NOT ON FORMULARY EA (Cholecalciferol (Vitamin D) 1 CAP) PO SCH (09:00)
[2018-12-22] MEDS ORDERED: ASPIRIN 81MG TABLET PO SCH (09:00)
[2018-12-22] MEDS ORDERED: FOLIC ACID 1MG TABLET PO SCH (09:00)
[2018-12-22] MEDS ORDERED: MEDICATION NOT ON FORMULARY EA (Aspirin (Aspirin Low Dose) 81 TAB) PO SCH (09:00)
[2018-12-22] MEDS ORDERED: CHOLECALCIFEROL (D3) 1000 UNIT TABLET PO SCH (09:00)
[2018-12-22] MEDS: THIAMINE HCL 100MG TABLET PO SCH (11:02)
[2018-12-22] MEDS: CALCIUM CARBONATE/VITAMIN D3 500MG TABLET PO SCH ×2 (11:02→17:58)
[2018-12-22] MEDS: DEXT 5%/0.45% NACL 1000ML 1,000 ML IV SCH (13:55)
[2018-12-22] MEDS ORDERED: LACTULOSE 20G/30ML UDC PO NR (16:00)
[2018-12-22] MEDS ORDERED: BACLOFEN 10MG TABLET PO SCH (21:00)
[2018-12-23] MEDS ORDERED: FAMOTIDINE 20MG TABLET PO SCH (09:00)
== END 2018-12-23 00:20 | disposition home or self-care (01) | DRG 641 ==
LOC: ER 14:15 → 6WST 18:02 → EDBEDREQ 18:10 → ENRESERV 23:09
PROVIDERS: ADMIT Internal Medicine; ATTEND Internal Medicine
DX: E86.0 Dehydration (principal); E72.20 Disorder of urea cycle metabolism, unspecified; F10.239 Alcohol dependence with withdrawal, unspecified; G61.0 Guillain-Barre syndrome; R17 Unspecified jaundice; D64.9 Anemia, unspecified; E78.5 Hyperlipidemia, unspecified; E87.6 Hypokalemia; R26.9 Unspecified abnormalities of gait and mobility; R74.0 Nonspecific elevation of levels of transaminase and lactic acid dehydrogenase [LDH]; W18.30XA Fall on same level, unspecified, initial encounter; G89.29 Other chronic pain; I10 Essential (primary) hypertension; K21.9 Gastro-esophageal reflux disease without esophagitis; Z91.19 Patient's noncompliance with other medical treatment and regimen; Y93.89 Activity, other specified; Y92.89 Other specified places as the place of occurrence of the external cause; Y99.8 Other external cause status; Z79.899 Other long term (current) drug therapy; Z79.82 Long term (current) use of aspirin
CPT/HCPCS: 36415; 71045; 80048; 80076; 80305; 80320; 82140; 85027; 94640; 96374; 97162; 99285; J2060; J7030; J7620; J7626; G0480

== ENCOUNTER 2019-03-29 11:22 | Inpatient (IN) | payer OTHER ==
[~2019-03-29] VITALS: Ht 175.3 cm; Wt 69.0 kg
[~2019-03-29 11:22] MED LIST changes: -DULO30CA51 PO; +DULO30CA52 PO
[2019-03-29 12:32] LABS: BASOPHILS % 0.7 % (0.0-2.0); EOSINOPHILS % 0.1 % (0.0-5.0); HEMATOCRIT. 38.9 % (42.0-52.0); LYMPHOCYTES % 12.1 % (20.0-50.0); MEAN CORPUSCULAR HEMOGLOBIN 28.7 pg (28.0-32.0); MEAN CORPUSCULAR VOLUME 86.3 fL (80.0-94.0); MEAN PLATELET VOLUME 7.9 fl (7.4-10.4); MONOCYTES % 7.3 % (2.0-8.0); NEUTROPHILS % 79.8 % (40.0-76.0); PLATELET 220 x1000/uL (130-400); RED BLOOD CELL COUNT 4.51 mill/uL (4.7-6.1); RED CELL DISTRIBUTION WIDTH 16.2 % (11.6-14.6)
[2019-03-29 12:37] LABS: CHLORIDE 105 mEq/L (98-107)
[2019-03-29] MEDS ORDERED: KETOROLAC 15MG/ML VIAL IV ONE (14:15)
[2019-03-29 14:58] LABS: CLARITY URINE CLEAR (CLEAR); COLOR URINE YELLOW (YELLOW); KETONES URINE 1+ (NEGATIVE); LEUKOCYTE ESTERASE URINE TRACE (NEGATIVE); NITRITE URINE NEGATIVE (NEGATIVE); OCCULT BLOOD URINE NEGATIVE (NEGATIVE); PH URINE 7.5 (4.5-8.0); PROTEIN URINE TRACE (NEGATIVE); SPECIFIC GRAVITY URINE 1.025 (1.005-1.030)
[2019-03-29 17:00] VITALS: BP 154/108
[2019-03-29 18:13] VITALS: BP 154/108
[2019-03-29] MEDS ORDERED: ONDANSETRON HCL 4MG/2ML INJ IV PRN (18:45)
[2019-03-29] MEDS ORDERED: ACETAMINOPHEN 325MG TABLET PO PRN (18:45)
[2019-03-29] MEDS ORDERED: IPRATROPIUM/ALBUTEROL 0.5-3(2.5)MG/3ML NEB HHN PRN (18:45)
[2019-03-29] MEDS ORDERED: CLONIDINE 0.1MG TABLET PO PRN (18:45)
[2019-03-29 20:00] VITALS: BP 160/85
[2019-03-29] MEDS ORDERED: MVI, ADULT NO.1 10 ML, FOLIC ACID 1 MG, THIAMINE HCL 100 MG in SODIUM CHLORIDE 0.9% 1,0... IV SCH ×4 (20:00)
[2019-03-29] MEDS ORDERED: ENOXAPARIN 40MG/0.4ML SYR SUBCUT SCH (20:00)
[2019-03-29] MEDS: THIAMINE HCL 100MG TABLET PO SCH (21:46)
[2019-03-29] MEDS: MULTIVITAMINS,THER W-MINERALS TABLET PO SCH (21:46)
[2019-03-29] MEDS: GABAPENTIN 300MG CAPSULE PO SCH (21:47)
[2019-03-29] MEDS: BACLOFEN 10MG TABLET PO SCH (21:48)
[2019-03-29 22:05] VITALS: BP 150/91
[2019-03-30] VITALS: BP 143/86
[2019-03-30 00:23] LABS: CREATINE KINASE 53 IU/L (39-308)
[2019-03-30 04:00] VITALS: BP 170/95
[2019-03-30] MEDS: GABAPENTIN 300MG CAPSULE PO SCH ×2 (05:22→13:23)
[2019-03-30] MEDS: BACLOFEN 10MG TABLET PO SCH ×2 (05:22→13:24)
[2019-03-30] MEDS: HYDROCODONE/ACETAMINOPHEN 5/325MG TABLET PO PRN ×2 (05:46→13:23)
[2019-03-30 07:31] LABS: HEMATOCRIT. 38.4 % (42.0-52.0); HEMOGLOBIN. 12.7 g/dL (14.0-18.0); MEAN CORPUSCULAR HEMOGLOBIN 28.7 pg (28.0-32.0); MEAN CORPUSCULAR VOLUME 87.1 fL (80.0-94.0); MEAN PLATELET VOLUME 8.2 fl (7.4-10.4); PLATELET 176 x1000/uL (130-400); RED BLOOD CELL COUNT 4.42 mill/uL (4.7-6.1); RED CELL DISTRIBUTION WIDTH 16.1 % (11.6-14.6)
[2019-03-30 07:35] LABS: CHLORIDE 105 mEq/L (98-107)
[2019-03-30 07:42] LABS: LDL CHOLESTEROL 102 mg/dL (5-100)
[2019-03-30 07:43] LABS: CREATINE KINASE 84 IU/L (39-308)
[2019-03-30 07:45] LABS: HDL CHOLESTEROL 76 mg/dL (40-59); T4 FREE 1.02 ng/dL (0.76-1.46)
[2019-03-30 08:00] VITALS: BP 153/91
[2019-03-30] MEDS: THIAMINE HCL 100MG TABLET PO SCH (08:29)
[2019-03-30] MEDS: MULTIVITAMINS,THER W-MINERALS TABLET PO SCH (08:29)
[2019-03-30] MEDS ORDERED: FOLIC ACID 1MG TABLET PO SCH (09:00)
[2019-03-30] MEDS ORDERED: SODIUM CHLORIDE 0.45% 1,000 ML IV SCH (11:45)
[2019-03-30] MEDS ORDERED: METOPROLOL TARTRATE 25MG TABLET PO NR (11:45)
[2019-03-30 12:00] VITALS: BP 126/66
[2019-03-30 14:17] LABS: PLATELET ESTIMATE NORMAL
[2019-03-30 16:00] VITALS: BP 142/73
[2019-03-30 16:45] VITALS: BP 142/73
[2019-03-30] MEDS ORDERED: METOPROLOL TARTRATE 25MG TABLET PO SCH (21:00)
== END 2019-03-30 19:30 | DRG 95 ==
LOC: ER 11:22 → CANBEDREQ 14:23 → 6WST 15:36 → ENRESERV 15:58
PROVIDERS: ADMIT Internal Medicine; ATTEND Internal Medicine
DX: G61.0 Guillain-Barre syndrome (principal); F11.20 Opioid dependence, uncomplicated; N39.0 Urinary tract infection, site not specified; R53.1 Weakness; E78.1 Pure hyperglyceridemia; F10.20 Alcohol dependence, uncomplicated; R26.2 Difficulty in walking, not elsewhere classified; I10 Essential (primary) hypertension; G89.4 Chronic pain syndrome; D72.819 Decreased white blood cell count, unspecified; D64.9 Anemia, unspecified; K21.9 Gastro-esophageal reflux disease without esophagitis; Z79.899 Other long term (current) drug therapy; Z79.82 Long term (current) use of aspirin; Z87.440 Personal history of urinary (tract) infections
CPT/HCPCS: 36415; 71045; 80061; 80320; 81003; 82550; 83735; 84439; 84443; 84484; 93005; 97162; 99285; J1650; J1885; J3411; J3490; J7030; G0480

== ENCOUNTER 2019-07-10 14:15 | Inpatient (IN) | payer MEDICARE ==
[~2019-07-10] VITALS: Ht 175.3 cm; Wt 73.0 kg
[~2019-07-10 14:15] MED LIST changes: -ASPI-1393 PO; +ASPI-1497 PO
[2019-07-10 18:49] LABS: BASOPHILS % 0.3 % (0.0-2.0); HEMOGLOBIN. 12.2 g/dL (14.0-18.0); LYMPHOCYTES % 8.4 % (20.0-50.0); MEAN CORPUSCULAR VOLUME 91.1 fL (80.0-94.0); MEAN PLATELET VOLUME 7.8 fl (7.4-10.4); MONOCYTES % 8.9 % (2.0-8.0); NEUTROPHILS % 82.4 % (40.0-76.0); PLATELET 145 x1000/uL (130-400); RED BLOOD CELL COUNT 4.06 mill/uL (4.7-6.1)
[2019-07-10 18:50] LABS: CHLORIDE 102 mEq/L (98-107)
[2019-07-10] MEDS ORDERED: SODIUM CHLORIDE 0.9% 1,000 ML IV ONE (19:15)
[2019-07-10] MEDS ORDERED: METHYLPREDNISOLONE SOD SUCC 125 MG/2 ML VIAL IV ONE (19:15)
[2019-07-10] MEDS ORDERED: ONDANSETRON HCL 4MG/2ML INJ IV ONE (19:15)
[2019-07-10] MEDS ORDERED: KETOROLAC 15MG/ML VIAL IV ONE (19:15)
[2019-07-10] MEDS ORDERED: MORPHINE SULFATE 4 MG/ML CPJ (NOT FOR IM USE) IV ONE (19:15)
[2019-07-11] VITALS (7 sets, daily range): BP systolic 121–155; BP diastolic 75–97
[2019-07-11] MEDS ORDERED: ONDANSETRON HCL 4MG/2ML INJ IV PRN (01:45)
[2019-07-11] MEDS ORDERED: HYDROCODONE/ACETAMINOPHEN 5/325MG TABLET PO PRN (01:45)
[2019-07-11] MEDS ORDERED: CLONIDINE 0.1MG TABLET PO PRN (02:00)
[2019-07-11] MEDS: DEXT 5%/0.45% NACL 1000ML 1,000 ML IV SCH ×3 (02:52→22:13)
[2019-07-11] MEDS: GABAPENTIN 300MG CAPSULE PO SCH ×3 (05:40→22:12)
[2019-07-11] MEDS: PANTOPRAZOLE SODIUM 40 MG/VIAL IV SCH (08:24)
[2019-07-11] MEDS: ENOXAPARIN 40MG/0.4ML SYR SUBCUT SCH (08:25)
[2019-07-11] MEDS: ASPIRIN 81MG TABLET PO SCH (08:26)
[2019-07-11] MEDS ORDERED: HYDRALAZINE 20MG/ML VIAL IV NR (10:00)
[2019-07-11] MEDS ORDERED: LORAZEPAM 2MG/ML CPJ IV PRN (11:45)
[2019-07-11] MEDS ORDERED: METOPROLOL TARTRATE 25MG TABLET PO SCH (13:00)
[2019-07-11] MEDS ORDERED: LORAZEPAM 2MG/ML CPJ IV SCH (13:00)
[2019-07-11] MEDS: CHLORDIAZEPOXIDE 25MG CAPSULE PO SCH ×2 (13:21→22:12)
[2019-07-11 15:45] LABS: BASOPHILS % 0.1 % (0.0-2.0); HEMOGLOBIN. 12.5 g/dL (14.0-18.0); LYMPHOCYTES % 7.4 % (20.0-50.0); MEAN CORPUSCULAR HEMOGLOBIN 30.4 pg (28.0-32.0); MEAN CORPUSCULAR VOLUME 92.1 fL (80.0-94.0); MEAN PLATELET VOLUME 8.2 fl (7.4-10.4); MONOCYTES % 11.3 % (2.0-8.0); NEUTROPHILS % 81.2 % (40.0-76.0); PLATELET 134 x1000/uL (130-400); RED BLOOD CELL COUNT 4.12 mill/uL (4.7-6.1)
[2019-07-11] MEDS: LEVOFLOXACIN 500MG PREMIX 100 ML IV SCH (19:04)
[2019-07-11] MEDS: IPRATROPIUM/ALBUTEROL 0.5-3(2.5)MG/3ML NEB HHN SCH (20:49)
[2019-07-11 21:55] LABS: CHLORIDE 106 mEq/L (98-107)
[2019-07-11 21:57] LABS: CREATINE KINASE 611 IU/L (39-308)
[2019-07-11 21:58] LABS: CREATINE KINASE MB FRACTION 3.7 ng/mL (0.5-3.6)
[2019-07-11] MEDS: METOPROLOL TARTRATE 25MG TABLET PO SCH (22:13)
[2019-07-12] VITALS: BP 133/83
[2019-07-12] MEDS: IPRATROPIUM/ALBUTEROL 0.5-3(2.5)MG/3ML NEB HHN SCH ×3 (00:59→14:41)
[2019-07-12 04:00] VITALS: BP 135/82
[2019-07-12] MEDS: CHLORDIAZEPOXIDE 25MG CAPSULE PO SCH ×3 (05:23→13:50)
[2019-07-12] MEDS: GABAPENTIN 300MG CAPSULE PO SCH ×2 (05:23→13:49)
[2019-07-12] MEDS: DEXT 5%/0.45% NACL 1000ML 1,000 ML IV SCH ×2 (05:25→15:42)
[2019-07-12 07:38] LABS: BASOPHILS % 0.1 % (0.0-2.0); EOSINOPHILS % 0.2 % (0.0-5.0); HEMATOCRIT. 41.1 % (42.0-52.0); HEMOGLOBIN. 13.6 g/dL (14.0-18.0); LYMPHOCYTES % 11.7 % (20.0-50.0); MEAN CORPUSCULAR HEMOGLOBIN 30.5 pg (28.0-32.0); MEAN CORPUSCULAR VOLUME 92.1 fL (80.0-94.0); MEAN PLATELET VOLUME 8.6 fl (7.4-10.4); MONOCYTES % 9.5 % (2.0-8.0); NEUTROPHILS % 78.5 % (40.0-76.0); PLATELET 124 x1000/uL (130-400); RED BLOOD CELL COUNT 4.47 mill/uL (4.7-6.1); RED CELL DISTRIBUTION WIDTH 16.3 % (11.6-14.6)
[2019-07-12 07:46] LABS: CHLORIDE 107 mEq/L (98-107)
[2019-07-12 08:00] VITALS: BP 129/76
[2019-07-12 08:09] LABS: VITAMIN B12 SERUM 311 pg/mL (211-911)
[2019-07-12] MEDS: MORPHINE SULFATE 2 MG/ML CPJ (NOT FOR IM USE) IV PRN ×2 (08:12→14:03)
[2019-07-12] MEDS: ENOXAPARIN 40MG/0.4ML SYR SUBCUT SCH (08:16)
[2019-07-12] MEDS: PANTOPRAZOLE SODIUM 40 MG/VIAL IV SCH (08:16)
[2019-07-12] MEDS: ASPIRIN 81MG TABLET PO SCH (08:16)
[2019-07-12] MEDS: METOPROLOL TARTRATE 25MG TABLET PO SCH (08:16)
[2019-07-12] MEDS ORDERED: FOLIC ACID 1MG TABLET PO SCH (09:00)
[2019-07-12] MEDS ORDERED: THIAMINE HCL 100MG TABLET PO SCH (09:00)
[2019-07-12] MEDS ORDERED: MULTIVITAMINS,THER W-MINERALS TABLET PO SCH (09:00)
[2019-07-12 12:00] VITALS: BP 109/60
[2019-07-12] MEDS ORDERED: POTASSIUM CHLORIDE 20MEQ TABLET SR PO NR (13:30)
[2019-07-12] MEDS ORDERED: LACTULOSE 20G/30ML UDC PO NR (14:00)
[2019-07-12 15:56] VITALS: BP 146/84
[2019-07-12 16:00] VITALS: BP 146/84
[2019-07-12] MEDS: LEVOFLOXACIN 500MG PREMIX 100 ML IV SCH (18:00)
[2019-07-12 18:11] LABS: CLARITY URINE CLEAR (CLEAR); COLOR URINE YELLOW (YELLOW); KETONES URINE NEGATIVE (NEGATIVE); LEUKOCYTE ESTERASE URINE NEGATIVE (NEGATIVE); NITRITE URINE NEGATIVE (NEGATIVE); OCCULT BLOOD URINE NEGATIVE (NEGATIVE); PH URINE 6.5 (4.5-8.0); PROTEIN URINE NEGATIVE (NEGATIVE); SPECIFIC GRAVITY URINE 1.012 (1.005-1.030)
[2019-07-12 18:44] LABS: *AMPHETAMINES SCREEN URINE NEGATIVE (NEGATIVE); *BARBITURATES SCREEN URINE NEGATIVE (NEGATIVE); CANNABINOID URINE SCREEN NEGATIVE (NEGATIVE); PHENCYCLIDINE URINE SCREEN NEGATIVE (NEGATIVE)
[2019-07-12 18:46] LABS: *BENZODIAZEPINES SCREEN URINE PRESUMTIVE POSITIVE (NEGATIVE); *COCAINE SCREEN URINE NEGATIVE (NEGATIVE); METHADONE URINE SCREEN NEGATIVE (NEGATIVE); OPIATES URINE SCREEN PRESUMTIVE POSITIVE (NEGATIVE)
[2019-07-13] MEDS ORDERED: FAMOTIDINE 20MG/2ML VIAL IV SCH (09:00)
== END 2019-07-12 16:22 | DRG 96 ==
LOC: ER 14:15 → 5WST 21:08 → ENRESERV 23:15
PROVIDERS: ADMIT Internal Medicine; ATTEND Internal Medicine
DX: G61.0 Guillain-Barre syndrome (principal); E86.0 Dehydration; I10 Essential (primary) hypertension; F10.10 Alcohol abuse, uncomplicated; Z91.19 Patient's noncompliance with other medical treatment and regimen; Z79.899 Other long term (current) drug therapy; Z79.82 Long term (current) use of aspirin; Z87.440 Personal history of urinary (tract) infections
CPT/HCPCS: 36415; 71045; 76700; 80053; 80305; 81003; 82140; 82550; 82553; 82607; 83880; 84484; 85025; 93005; 97162; 99285; C9113; J0360; J1650; J1885; J1956; J2060; J2270; J2405; J2930; J7030